=== PATIENT | male | born 1960 | race Caucasian/White ===

== ENCOUNTER 2022-06-07 17:59 | Emergency (ER) | payer MEDICAID ==
[~2022-06-07] VITALS: Ht 177.8 cm; Wt 87.1 kg
[2022-06-07 18:11] VITALS: BP 186/112
[2022-06-07] MEDS ORDERED: bacitracin 15gm ointment TP ONE (18:45)
--- NOTE | 2022-06-07 18:55 | NUR ---
wound cleaned and dressed. topical applied
== END 2022-06-07 18:56 | disposition home or self-care (01) ==
LOC: ER 18:00
DX: S91.302A Unspecified open wound, left foot, initial encounter (principal); Z88.5 Allergy status to narcotic agent; X58.XXXA Exposure to other specified factors, initial encounter; Y93.89 Activity, other specified; Y92.89 Other specified places as the place of occurrence of the external cause; Y99.8 Other external cause status
CPT/HCPCS: 99282

== ENCOUNTER 2023-02-06 16:26 | Emergency (ER) | payer MEDICAID ==
[~2023-02-06] VITALS: Ht 177.8 cm; Wt 90.9 kg
--- NOTE | 2023-02-06 18:08 | NUR ---
PT MEDICALLY HX RECALLED PT ETOH.
[2023-02-06] MEDS ORDERED: folic acid 1mg tablet PO ONE (18:10)
[2023-02-06] MEDS ORDERED: thiamine 100mg tablet PO ONE (18:10)
[2023-02-06] MEDS ORDERED: normal saline 1000ML IV soln IVB ONE (18:10)
[2023-02-06] MEDS ORDERED: TETanus/Pertussis (Acell)/Diphther VAC/PF (Tdap-Adult) 0.5ml syringe IMVAC ONE (18:55)
[2023-02-06] MEDS ORDERED: LIDOcaine 1% W/epiNEPHrine 1:200,000 10ml vial IJ ONE (19:35)
[2023-02-06] MEDS ORDERED: LIDOCAINE 2%/EPI 1:100,000 inj. Multi-dose 20 ML VIAL IJ ONE (19:35)
[2023-02-06] MEDS ORDERED: CEPH250T PO (19:58)
--- NOTE | 2023-02-06 21:57 | NUR ---
RECEIVED REPORT FROM RUBEN ROLLE ASSUMING CARE OF PT.
[2023-02-06] MEDS ORDERED: acetaminophen 325mg tablet PO ONE (22:05)
--- NOTE | 2023-02-06 22:58 | NUR ---
PT RESTING QUIETLY IN ROOM [facility] POSTION APAP ADMIN FOR POMPA BY RETAIL LOAN ORIGINATOR ASSISTANT MEMBER. PT ENDORSES NO RELIEF AT PRESENT TIME. " I HAVE NO PLACE TO GO AND MY HEAD HURTS REAL BAD" " CAN I LAY HERE FOR A LITTLE WHILE PLEASE"
[2023-02-06 23:48] VITALS: BP 139/84
[2023-02-11] MEDS ORDERED: IBUP-1985 PO (02:55)
[2023-02-11] MEDS ORDERED: HYDR-3965 PO (02:55)
== END 2023-02-06 23:53 | disposition home or self-care (01) ==
LOC: ER 16:27
DX: S01.111A Laceration without foreign body of right eyelid and periocular area, initial encounter (principal); X58.XXXA Exposure to other specified factors, initial encounter; Y93.89 Activity, other specified; Y92.89 Other specified places as the place of occurrence of the external cause; Y99.8 Other external cause status
CPT/HCPCS: 12013; 36415; 70450; 73110; 73130; 80320; 90471; 90715; 96360; 96361; 99285; J7030; A6449